=== PATIENT | female | born 1970 | race African-American/Black ===

== ENCOUNTER → 2018-12-03 | Outpatient (CLI) | payer OTHER ==
[~2018-12-03] MED LIST: CIPROFLOXACIN500 M1 PO; CITRATE OF MAG296 ML PO; IBUPROFEN 600600 M1 PO; NORCO 5-325 TA1 EACH PO; NORFLEX100 MG PO
== END ==
LOC: CAT 13:42
DX: Z13.6 Encounter for screening for cardiovascular disorders (principal); E78.00 Pure hypercholesterolemia, unspecified; I25.10 Atherosclerotic heart disease of native coronary artery without angina pectoris